=== PATIENT | female | born 1975 | race Caucasian/White ===

== ENCOUNTER 2017-09-10 17:09 | Inpatient (IN) | payer OTHER ==
--- NOTE | 2017-09-10 17:23 | PDOC ---
History of Present Illness - General Chief Complaint: Wound Stated Complaint: FEVER Time Seen by Provider: 09/10/17 17:13 History Source: Patient Exam Limitations: No Limitations - History of Present Illness Initial Comments: 09/10/17 17:23 47-year-old female history of LAP-BAND surgery many years ago was recently seen at [place] for region of her LAP-BAND due to chronic draining abdominal wound. Lap band was removed last week since going patient has a abdominal wound which she has been treating with daily packing wet-to-dry dressings. Today she was seen in follow-up and found to have a fever of [id number] she reports chills for the last 3 days denies any urinary complaints as appropriate postoperative abdominal pain but no nausea no vomiting no change to her stools no recent leg swelling she does feel mildly short of breath no pleuritic chest pain no history of blood clots no rash the abdominal wound has been draining yellowish soupy-like discharge the last day Past History - Past Medical History Allergies/Adverse Reactions: Allergies Allergy/AdvReac Type Severity Reaction Status Date / Time No Known Allergies Allergy Verified 09/10/17 17:12 Home Medications: Ambulatory Orders Bupropion HCl [Wellbutrin Sr] 150 mg PO DAILY 09/02/17 Famotidine [Pepcid] 20 mg PO BID #60 tablet 09/02/17 Oxycodone HCl/Acetaminophen [Percocet 5-325 mg Tablet] 1 tab PO Q6H PRN #20 tablet MDD 4 09/02/17 Sulfamethoxazole/Trimethoprim [Bactrim DS -] 1 tab PO BID 09/02/17 COPD: No DVT: No Psychiatric Problems: Yes (DEPRESSION) - Surgical History Abdominal Surgery: Yes (GASTRIC BAND) - Suicide/Smoking/Psychosocial Hx Smoking History: Never smoked Hx Alcohol Use: No Drug/Substance Use Hx: No Substance Use Type: None Review of Systems - Review of Systems Constitutional: Yes: Chills, Fever HEENTM: No: Eye Pain Respiratory: Yes: Shortness of Breath. No: Cough Cardiac (ROS): No: Chest Pain ABD/GI: No: Diarrhea, Nausea, Vomiting, Abdominal cramping Musculoskeletal: No: Back Pain Integumentary: Yes: Other (abd wound) All Other Systems: Reviewed and Negative *Physical Exam - Vital Signs Last Vital Signs Temp Pulse Resp BP Pulse Ox 102.6 F H 101 H 18 124/69 100 09/10/17 17:11 09/10/17 17:11 09/10/17 17:11 09/10/17 17:11 09/10/17 17:11 - Physical Exam General Appearance: Yes: Appropriately Dressed Neck: positive: Trachea midline Respiratory/Chest: positive: Lungs Clear, Normal Breath Sounds. negative: Respiratory Distress Cardiovascular: positive: Regular Rhythm, Regular Rate, S1, S2, Tachycardia Gastrointestinal/Abdominal: positive: Normal Bowel Sounds, Tender (suprapubic ttp. abd wound right mid abd with clean edges, no surrounding erythema. clean dressing. suprapubic ttp. no rebound no guard. no cva tenderness. ), Flat, Soft Extremity: positive: Normal Capillary Refill, Normal Inspection, Normal Range of Motion. negative: Calf Tenderness, Erythema Integumentary: positive: Normal Color, Dry, Warm, Other (abd wound described above. appropriate post op incision, bruising. ) Neurologic: positive: Fully Oriented, Alert *DC/Admit/Observation/Transfer - Discharge Dispostion Condition at time of disposition: Stable - Referrals - Patient Instructions - Post Discharge Activity
[2017-09-10 17:26] VITALS: BMI 38.5
--- NOTE | 2017-09-10 17:33 | PDOC ---
History of Present Illness <Aysha Joseph - Last Filed: 09/10/17 19:13> - History of Present Illness Initial Comments: 09/10/17 17:32 Ms. Celaya is a 41 yo female w/ pmh of HLD and recent lap band adjustment 2017 and recent band removal 09/02/2017 after resultant draining abscess refractory to both Bactrim and Keflex courses who presents for evaluation of 102 -103 fever noted at home with additional chills and yellow discharge. Patient also reports some body aches and slight shortness of breath as well as a lack of appetite post-op; she describes food as "repulsive;" also says she has had slightly looser stool lately she attributes to the antibiotics. The patient denies chest pain, headache and dizziness. Denies nausea, vomit, diarrhea and constipation. Denies dysuria, frequency, urgency and hematuria. Allergies: NKDA <Piotr Araiza - Last Filed: 09/10/17 19:14> - General Chief Complaint: Wound Stated Complaint: FEVER Time Seen by Provider: 09/10/17 17:13 Past History <Aysha Joseph - Last Filed: 09/10/17 19:13> - Past Medical History COPD: No DVT: No Psychiatric Problems: Yes (DEPRESSION) - Surgical History Abdominal Surgery: Yes (GASTRIC BAND) - Suicide/Smoking/Psychosocial Hx Smoking History: Never smoked Hx Alcohol Use: No Drug/Substance Use Hx: No Substance Use Type: None <Piotr Araiza - Last Filed: 09/10/17 19:14> - Past Medical History Allergies/Adverse Reactions: Allergies Allergy/AdvReac Type Severity Reaction Status Date / Time No Known Allergies Allergy Verified 09/10/17 17:12 Home Medications: Ambulatory Orders Bupropion HCl [Wellbutrin Sr] 150 mg PO DAILY 09/02/17 Famotidine [Pepcid] 20 mg PO BID #60 tablet 09/02/17 Oxycodone HCl/Acetaminophen [Percocet 5-325 mg Tablet] 1 tab PO Q6H PRN #20 tablet MDD 4 09/02/17 Sulfamethoxazole/Trimethoprim [Bactrim DS -] 1 tab PO BID 09/02/17 Review of Systems - Review of Systems Comments:: 09/10/17 17:43 GENERAL/CONSTITUTIONAL: +3 days of fever/chills. No weakness. HEAD, EYES, EARS, NOSE AND THROAT: No change in vision. No ear pain or discharge. No sore throat. CARDIOVASCULAR: +Some slight current shortness of breath. No chest pain RESPIRATORY: No cough, wheezing, or hemoptysis. GASTROINTESTINAL: +Soft stool. Gastric fullness as described. No nausea, vomiting, or constipation. GENITOURINARY: +Increased frequency of urination. No dysuria. MUSCULOSKELETAL: No joint or muscle swelling or pain. No neck or back pain. SKIN: No rash NEUROLOGIC: No headache, vertigo, loss of consciousness, or change in strength/ sensation. ENDOCRINE: No increased thirst. No abnormal weight change HEMATOLOGIC/LYMPHATIC: No anemia, easy bleeding, or history of blood clots. ALLERGIC/IMMUNOLOGIC: No hives or skin allergy. <Piotr Araiza - Last Filed: 09/10/17 19:14> *Physical Exam - Vital Signs Last Vital Signs Temp Pulse Resp BP Pulse Ox 102.6 F H 101 H 18 124/69 100 09/10/17 17:11 09/10/17 17:11 09/10/17 17:11 09/10/17 17:11 09/10/17 17:11 <Aysha Joseph - Last Filed: 09/10/17 19:13> - Vital Signs Last Vital Signs Temp Pulse Resp BP Pulse Ox 102.6 F H 101 H 18 124/69 100 09/10/17 17:11 09/10/17 17:11 09/10/17 17:11 09/10/17 17:11 09/10/17 17:11 - Physical Exam Comments: 09/10/17 17:43 GENERAL: Awake, alert, and fully oriented, in no acute distress HEAD: No signs of trauma, normocephalic, atraumatic EYES: PERRLA, EOMI, sclera anicteric, conjunctiva clear ENT: Auricles normal inspection, hearing grossly normal, nares patent, oropharynx clear without exudates. Moist mucosa NECK: Normal ROM, supple, no lymphadenopathy, JVD, or masses LUNGS: No distress, speaks full sentences, clear to auscultation bilaterally HEART: Regular rate and rhythm, normal S1 and S2, no murmurs, rubs or gallops, peripheral pulses normal and equal bilaterally. ABDOMEN: +Incision site noted with surgical packing - appears well healing. Moderately tender around incision site. Soft, normoactive bowel sounds. No guarding, no rebound. No masses EXTREMITIES: Normal inspection, Normal range of motion, no edema. No clubbing or cyanosis. NEUROLOGICAL: Cranial nerves II through XII grossly intact. Normal speech, normal gait, no focal sensorimotor deficits SKIN: Warm, Dry, normal turgor, no rashes or lesions noted. <Piotr Araiza - Last Filed: 09/10/17 19:14> ED Treatment Course - LABORATORY CBC & Chemistry Diagram: 09/10/17 17:50 09/10/17 17:50 - ADDITIONAL ORDERS Additional order review: Laboratory Results 09/10/17 09/10/17 09/10/17 17:50 17:50 17:50 PT with INR 13.2 H INR 1.18 PTT (Actin FS) 27.9 Sodium 130 L Potassium 3.7 Chloride 101 Carbon Dioxide 26 Anion Gap 3 L BUN 9 Creatinine 0.7 Creat Clearance w eGFR > 60 Random Glucose 95 Calcium 7.8 L Total Bilirubin 0.6 AST 84 H D ALT 97 H D Alkaline Phosphatase 163 H D Total Protein 7.1 Albumin 2.8 L Urine Color Dark yellow Urine Appearance Cloudy Urine pH 5.5 Ur Specific [place] >= 1.030 H Urine Protein 1+ H Urine Glucose (UA) Negative Urine Ketones Trace Urine Blood 3+ H Urine Nitrite Negative Urine Bilirubin 1+ H Urine Urobilinogen 0.2 Ur Leukocyte Esterase Negative Urine RBC >100 Urine WBC 2-5 Ur Epithelial Cells Few Urine Bacteria Many Urine Mucus Few 09/10/17 17:50 RBC 4.57 MCV 82.2 MCHC 33.3 RDW 14.3 MPV 6.9 L Neutrophils % 81.7 Lymphocytes % 8.7 Monocytes % 8.3 Eosinophils % 1.0 Basophils % 0.3 - RADIOLOGY Radiology Studies Ordered: Category Date Time Status ABDOMEN & PELVIS CT WITH CONTR [CT] Stat CT Scan 09/10/17 17:39 Completed CHEST PA & LAT [RAD] Stat Radiology 09/10/17 17:32 Completed - Medications Given in the ED: ED Medications Discontinued Medications Generic Name Dose Route Start Last Admin Trade Name Freq PRN Reason Stop Dose Admin Acetaminophen 1,000 mg 09/10/17 17:40 09/10/17 18:03 Ofirmev Injection - IVPB 09/10/17 17:41 1,000 mg ONCE ONE Administration Sodium Chloride 1,000 ml 09/10/17 17:40 09/10/17 18:03 Normal Saline - IV 09/10/17 17:41 1,000 ml ONCE ONE Administration <Aysha Joseph - Last Filed: 09/10/17 19:13> - LABORATORY CBC & Chemistry Diagram: 09/10/17 17:50 09/10/17 17:50 <Piotr Araiza - Last Filed: 09/10/17 19:14> Medical Decision Making - Medical Decision Making 09/10/17 18:43 Ms. Celaya is a 41 yo female w/ pmh as described who presents for evaluation of fever in a post-op setting. Patient given tylenol for fever. Labs sent for evaluation of presumed infection source as below. Patient urine notable for significant blood as below; patient reports she is currently on day 2 of her menstrual cycle. Patient currently pending CT for further evaluation of possible post-op infection source. 09/10/17 18:49 Patient noted to have small subcutaneous abscess and free fluid in abdomen and pelvis on CT. Labs also significant for AST/ALT elevations. With this in conjunction with CT findings will cover for presumed infection with IV ABX and admit patient for observation. Paging inpatient team. Laboratory Results - last 24 hr 09/10/17 09/10/17 09/10/17 17:50 17:50 17:50 WBC 4.9 RBC 4.57 Hgb 12.5 Hct 37.6 MCV 82.2 MCH 27.4 MCHC 33.3 RDW 14.3 Plt Count 375 MPV 6.9 L Absolute Neuts (auto) 4.1 Neutrophils % 81.7 Lymphocytes % 8.7 Monocytes % 8.3 Eosinophils % 1.0 Basophils % 0.3 PT with INR 13.2 H INR 1.18 PTT (Actin FS) 27.9 Sodium Potassium Chloride Carbon Dioxide Anion Gap BUN Creatinine Creat Clearance w eGFR Random Glucose Calcium Total Bilirubin AST ALT Alkaline Phosphatase Total Protein Albumin Urine Color Dark yellow Urine Appearance Cloudy Urine pH 5.5 Ur Specific [place] >= 1.030 H Urine Protein 1+ H Urine Glucose (UA) Negative Urine Ketones Trace Urine Blood 3+ H Urine Nitrite Negative Urine Bilirubin 1+ H Urine Urobilinogen 0.2 Ur Leukocyte Esterase Negative Urine RBC >100 Urine WBC 2-5 Ur Epithelial Cells Few Urine Bacteria Many Urine Mucus Few 09/10/17 17:50 WBC RBC Hgb Hct MCV MCH MCHC RDW Plt Count MPV Absolute Neuts (auto) Neutrophils % Lymphocytes % Monocytes % Eosinophils % Basophils % PT with INR INR PTT (Actin FS) Sodium 130 L Potassium 3.7 Chloride 101 Carbon Dioxide 26 Anion Gap 3 L BUN 9 Creatinine 0.7 Creat Clearance w eGFR > 60 Random Glucose 95 Calcium 7.8 L Total Bilirubin 0.6 AST 84 H D ALT 97 H D Alkaline Phosphatase 163 H D Total Protein 7.1 Albumin 2.8 L Urine Color Urine Appearance Urine pH Ur Specific [place] Urine Protein Urine Glucose (UA) Urine Ketones Urine Blood Urine Nitrite Urine Bilirubin Urine Urobilinogen Ur Leukocyte Esterase Urine RBC Urine WBC Ur Epithelial Cells Urine Bacteria Urine Mucus 09/10/17 19:09 <Piotr Araiza - Last Filed: 09/10/17 19:14> *DC/Admit/Observation/Transfer <Aysha Joseph - Last Filed: 09/10/17 19:13> - Discharge Dispostion Decision to Admit order: Yes <Piotr Araiza - Last Filed: 09/10/17 19:14> Diagnosis at time of Disposition: Fever Qualifiers: Fever type: unspecified Qualified Code(s): R50.9 - Fever, unspecified Sepsis Qualifiers: Sepsis type: sepsis due to unspecified organism Qualified Code(s): A41.9 - Sepsis, unspecified organism Cellulitis Qualifiers: Site of cellulitis: unspecified site Qualified Code(s): L03.90 - Cellulitis, unspecified Post op infection Qualifiers: Encounter type: initial encounter Qualified Code(s): T81.4XXA - Infection following a procedure, initial encounter - Discharge Dispostion Condition at time of disposition: Stable
--- NOTE | 2017-09-10 17:36 | PDOC ---
Attending Attestation - Resident Resident Name: Piotr Araiza - ED Attending Attestation I have performed the following: I have examined & evaluated the patient, The case was reviewed & discussed with the resident, I agree w/resident's findings & plan, Exceptions are as noted - HPI HPI: 09/10/17 17:34 47-year-old female history of LAP-BAND surgery many years ago was recently seen at [place] for region of her LAP-BAND due to chronic draining abdominal wound. Lap band was removed last week since going patient has a abdominal wound which she has been treating with daily packing wet-to-dry dressings. Today she was seen in follow-up and found to have a fever of 102-0103 she reports chills for the last 3 days denies any urinary complaints as appropriate postoperative abdominal pain but no nausea no vomiting no change to her stools no recent leg swelling she does feel mildly short of breath no pleuritic chest pain no history of blood clots no rash the abdominal wound has been draining yellowish soupy-like discharge the last day - Physicial Exam PE: 09/10/17 17:34 awake alert lungs clear bilaterally. heart reg tachycardia. no mrg. abd soft. right mid abd wound with packing dry inplace. no surrounding erythema. granulation tissue. suprapubic ttp. no rebound no guarding. mild left cva tenderness. ext wwp no edema. skin warm and dry no rash, abd wound described above. post op incisions laprasopic incisions. cdi. no erythema. nuero alert oriented x 3. - Medical Decision Making 09/10/17 17:36 09/10/17 17:37 41 yo F with post op fever, lap band removal and excision infected port tract, differential post op pna, uti, pyelo, intrabdominal abscess. plan cbc lytes lactate. fever control iv hydration. cxr ua cultures. and ct aq/p r/o intrabdominal infection.
[2017-09-10] MEDS ORDERED: ACETAMINOPHEN 1000 MG/100 ML VIAL (NON FORMULARY) IVPB ONE (17:40)
[2017-09-10] MEDS ORDERED: SODIUM CHLORIDE 0.9% 1000 ML INFUS.BAG IV ONE (17:40)
[2017-09-10] MEDS ORDERED: ACETAMINOPHEN INJECTION 100 ML IVPB ONE (17:59)
[2017-09-10 18:02] LABS: PH,URINE 5.5 (4.5-8); URINE APPEARANCE Cloudy; URINE BILIRUBIN 1+ (NEGATIVE); URINE GLUCOSE (UA) Negative (NEGATIVE); URINE KETONE Trace (NEGATIVE); URINE LEUK ESTERASE Negative (NEGATIVE); URINE NITRITE Negative (NEGATIVE); URINE UROBILINOGEN 0.2 (0.2-1.0)
[2017-09-10 18:04] LABS: BASO % 0.3 % (0-2.0); HEMATOCRIT 37.6 % (32.4-45.2); HEMOGLOBIN 12.5 GM/dl (10.7-15.3); LYMPH % 8.7 % (8-40); MCH 27.4 pg (25.7-33.7); MCHC 33.3 g/dl (32.0-36.0); MEAN CELL VOLUME 82.2 fl (80-96); MEAN PLT VOLUME 6.9 fl (7.5-11.1); MONO % 8.3 % (3.8-10.2); NEUT % 81.7 % (42.8-82.8); PLATELET COUNT 375 K/MM3 (134-434); RBC 4.57 M/mm3 (3.60-5.2); RDW 14.3 % (11.6-15.6); WHITE BLOOD COUNT 4.9 K/mm3 (4.0-10.8)
[2017-09-10 18:05] LABS: URINE PROTEIN 1+ (NEGATIVE)
[2017-09-10 18:06] LABS: URINE COLOR DARK YELLOW
[2017-09-10 18:12] LABS: ACTIVATED PTT 27.9 SECONDS (25.2-36.5)
[2017-09-10 18:14] LABS: ALBUMIN 2.8 g/dl (3.5-5.0); ALK PHOS 163 U/L (32-92); ANION GAP 3 (8-16); BILIRUBIN,TOTAL 0.6 mg/dl (0.2-1.0); BLOOD UREA NITROGEN 9 mg/dl (7-18); CALCIUM 7.8 mg/dl (8.4-10.2); CHLORIDE 101 mmol/L (98-107); CO2 26 mmol/L (22-28); CREATININE 0.7 mg/dl (0.6-1.3); GLUCOSE,RANDOM 95 mg/dl (74-106); POTASSIUM 3.7 mmol/L (3.5-5.1); SGOT/AST 84 U/L (10-42); SGPT/ALT 97 U/L (10-40); SODIUM 130 mmol/L (136-145); TOT PROT 7.1 g/dl (6.4-8.3)
[2017-09-10 18:16] LABS: INR 1.18 (0.82-1.09); PROTHROMBIN TIME (PATIENT) 13.2 SEC (10.2-13.0)
[2017-09-10 18:33] LABS: EPI CELLS FEW /HPF; URINE BACTERIA MANY /hpf (NEGATIVE); URINE MUCUS FEW; URINE RBC >100 /hpf (0-3)
[2017-09-10] MEDS ORDERED: VANCOMYCIN 1 GRAM (PRE-DOCKED) 1,000 MG/250 ML BAG IVPB ONE (19:10)
[2017-09-10] MEDS ORDERED: PIPERACILLIN/TAZOB 3.375 GM 3.375 GM in DEXTROSE 5%-WATER - 50 ML IVPB ONE (19:11)
[2017-09-10] MEDS ORDERED: PIPERACILLIN/TAZOBACTAM 3.375 GM VIAL IVPB ONE (19:17)
[2017-09-10] MEDS ORDERED: VANCOMYCIN 1,000 MG VIAL (RESTRICTED TO ID ONLY) ONE (19:28)
--- NOTE | 2017-09-10 20:14 | PDOC ---
*Physical Exam - Vital Signs Last Vital Signs Temp Pulse Resp BP Pulse Ox 102.6 F H 101 H 18 124/69 100 09/10/17 17:11 09/10/17 17:11 09/10/17 17:11 09/10/17 17:11 09/10/17 17:11 ED Treatment Course - LABORATORY CBC & Chemistry Diagram: 09/10/17 17:50 09/10/17 17:50 - ADDITIONAL ORDERS Additional order review: Laboratory Results 09/10/17 09/10/17 09/10/17 17:50 17:50 17:50 PT with INR INR PTT (Actin FS) Sodium 130 L Potassium 3.7 Chloride 101 Carbon Dioxide 26 Anion Gap 3 L BUN 9 Creatinine 0.7 Creat Clearance w eGFR > 60 Random Glucose 95 Lactic Acid 0.7 Calcium 7.8 L Total Bilirubin 0.6 AST 84 H D ALT 97 H D Alkaline Phosphatase 163 H D Total Protein 7.1 Albumin 2.8 L Urine Color Dark yellow Urine Appearance Cloudy Urine pH 5.5 Ur Specific [place] >= 1.030 H Urine Protein 1+ H Urine Glucose (UA) Negative Urine Ketones Trace Urine Blood 3+ H Urine Nitrite Negative Urine Bilirubin 1+ H Urine Urobilinogen 0.2 Ur Leukocyte Esterase Negative Urine RBC >100 Urine WBC 2-5 Ur Epithelial Cells Few Urine Bacteria Many Urine Mucus Few 09/10/17 17:50 PT with INR 13.2 H INR 1.18 PTT (Actin FS) 27.9 Sodium Potassium Chloride Carbon Dioxide Anion Gap BUN Creatinine Creat Clearance w eGFR Random Glucose Lactic Acid Calcium Total Bilirubin AST ALT Alkaline Phosphatase Total Protein Albumin Urine Color Urine Appearance Urine pH Ur Specific [place] Urine Protein Urine Glucose (UA) Urine Ketones Urine Blood Urine Nitrite Urine Bilirubin Urine Urobilinogen Ur Leukocyte Esterase Urine RBC Urine WBC Ur Epithelial Cells Urine Bacteria Urine Mucus 09/10/17 17:50 RBC 4.57 MCV 82.2 MCHC 33.3 RDW 14.3 MPV 6.9 L Neutrophils % 81.7 Lymphocytes % 8.7 Monocytes % 8.3 Eosinophils % 1.0 Basophils % 0.3 - Medications Given in the ED: ED Medications Discontinued Medications Generic Name Dose Route Start Last Admin Trade Name Freq PRN Reason Stop Dose Admin Acetaminophen 1,000 mg 09/10/17 17:40 09/10/17 18:03 Ofirmev Injection - IVPB 09/10/17 17:41 1,000 mg ONCE ONE Administration Piperacillin Sod/Tazobactam 50 mls @ 100 mls/hr 09/10/17 19:11 09/10/17 19:20 Sod 3.375 gm/ Dextrose IVPB 09/10/17 19:40 100 mls/hr ONCE ONE Administration Protocol Sodium Chloride 1,000 ml 09/10/17 17:40 09/10/17 18:03 Normal Saline - IV 09/10/17 17:41 1,000 ml ONCE ONE Administration Vancomycin HCl 1,000 mg 09/10/17 19:10 09/10/17 20:11 Vancomycin (Pre-Docked) IVPB 09/10/17 19:11 1,000 mg ONCE ONE Administration Protocol Medical Decision Making - Medical Decision Making 09/10/17 20:12 Care received at 1900 Case discussed with nurse practitioner Ariane, patient accepted for admission under Dr. Holden Case discussed in detail with admitting physician including history, physical exam and ancillary studies. Admitting physician has assumed care for the patient, will follow all pending diagnostics and will complete the evaluation and treatment. *DC/Admit/Observation/Transfer Diagnosis at time of Disposition: Fever Qualifiers: Fever type: unspecified Qualified Code(s): R50.9 - Fever, unspecified Sepsis Qualifiers: Sepsis type: sepsis due to unspecified organism Qualified Code(s): A41.9 - Sepsis, unspecified organism Cellulitis Qualifiers: Site of cellulitis: unspecified site Qualified Code(s): L03.90 - Cellulitis, unspecified Post op infection Qualifiers: Encounter type: initial encounter Qualified Code(s): T81.4XXA - Infection following a procedure, initial encounter - Discharge Dispostion Condition at time of disposition: Stable - Referrals - Patient Instructions - Post Discharge Activity
[2017-09-10] MEDS ORDERED: DEXTROSE 5%-0.45% SALINE 1,000 ML IV SCH ×2 (20:15→20:17)
[2017-09-10] MEDS: HEPARIN NA (PORCINE) 5,000 UNITS/ML 1ML VIAL SQ SCH (22:00)
[2017-09-11] MEDS ORDERED: ACETAMINOPHEN 325 MG TABLET (FP) PO ONE ×2 (00:39→22:33)
--- NOTE | 2017-09-11 00:47 | HP ---
CHIEF COMPLAINT: Fever, Chills, Abdominal Wound PCP: HISTORY OF PRESENT ILLNESS: This is a 41 y/o young woman with a PMHx of Anxiety, s/p Lap Band (2007), s/p Lap Band Removal (09/02/17). Who presents to the ED with fever, chills. yellow discharge from abdominal wound. Patient reports being treated with packing and dressings. She reports having a follow up at the surgeon's office and was seen by the COMPLAINT INSPECTOR who changed the dressing. Patient reports having slight abdominal pain on movement. Patient denies cough, dizziness, SOB, CP, N/V/D, constipation , dysuria. ER course was notable for: (1) CTAP- small suncutaneous abscess and free fluid in abdomen/pelvis (2) T Max 102.6 (3) LFTs> 2XNL Recent Travel: None PAST MEDICAL HISTORY: HLD Anxiety PAST SURGICAL HISTORY: Abdominalplasty 2017 Lap Band Lap Band Removal x2 Social History: Smoking: Never Alcohol: Social Drugs: None Resides with spouse, employed at [employer] Family History: Father: HTN, HLD Mother: HLD, DM Allergies No Known Allergies Allergy (Verified 09/10/17 20:04) HOME MEDICATIONS: Home Medications Medication Instructions Recorded Bupropion HCl [Wellbutrin Sr] 150 mg PO DAILY 09/02/17 REVIEW OF SYSTEMS CONSTITUTIONAL: fever, chills, loss of appetite Absent: diaphoresis, generalized weakness, malaise, weight change HEENT: Absent: rhinorrhea, nasal congestion, throat pain, throat swelling, difficulty swallowing, mouth swelling, ear pain, eye pain, visual changes CARDIOVASCULAR: Absent: chest pain, syncope, palpitations, irregular heart rate, lightheadedness , peripheral edema RESPIRATORY: Absent: cough, shortness of breath, dyspnea with exertion, orthopnea, wheezing, stridor, hemoptysis GASTROINTESTINAL: Absent: abdominal pain, abdominal distension, nausea, vomiting, diarrhea, constipation, melena, hematochezia GENITOURINARY: Absent: dysuria, frequency, urgency, hesitancy, hematuria, flank pain, genital pain MUSCULOSKELETAL: Absent: myalgia, arthralgia, joint swelling, back pain, neck pain SKIN: Absent: rash, itching, pallor HEMATOLOGIC/IMMUNOLOGIC: Absent: easy bleeding, easy bruising, lymphadenopathy, frequent infections ENDOCRINE: Absent: unexplained weight gain, unexplained weight loss, heat intolerance, cold intolerance NEUROLOGIC: Absent: headache, focal weakness or paresthesias, dizziness, unsteady gait, seizure, mental status changes, bladder or bowel incontinence PSYCHIATRIC: Absent: anxiety, depression, suicidal or homicidal ideation, hallucinations. PHYSICAL EXAMINATION Vital Signs - 24 hr 09/10/17 09/10/17 09/10/17 17:11 20:12 20:23 Temperature 102.6 F H 98.5 F 99.8 F H Pulse Rate 101 H 85 88 Respiratory 18 20 18 Rate Blood Pressure 124/69 106/50 97/53 O2 Sat by Pulse 100 Oximetry (%) 09/10/17 21:00 Temperature Pulse Rate Respiratory 18 Rate Blood Pressure O2 Sat by Pulse Oximetry (%) GENERAL: Awake, alert, and fully oriented, in no acute distress. HEAD: Normal with no signs of trauma. EYES: Pupils equal, round and reactive to light, extraocular movements intact, sclera anicteric, conjunctiva clear. No lid lag. EARS, NOSE, THROAT: Ears normal, nares patent, oropharynx clear without exudates. Moist mucous membranes. NECK: Normal range of motion, supple without lymphadenopathy, JVD, or masses. LUNGS: Breath sounds equal, clear to auscultation bilaterally. No wheezes, and no crackles. No accessory muscle use. HEART: Regular rate and rhythm, normal S1 and S2 without murmur, rub or gallop. ABDOMEN: Soft, nontender, not distended, normoactive bowel sounds, no guarding, no rebound, no masses. No hepatomegaly or splenomegaly. dressing with gauze and packing, slight erythema below right mid quad- umbilical region MUSCULOSKELETAL: Normal range of motion at all joints. No bony deformities or tenderness. No CVA tenderness. UPPER EXTREMITIES: 2+ pulses, warm, well-perfused. No cyanosis. No clubbing. No peripheral edema. LOWER EXTREMITIES: 2+ pulses, warm, well-perfused. No calf tenderness. No peripheral edema. NEUROLOGICAL: Cranial nerves II-XII intact. Normal speech. Gait not observed. PSYCHIATRIC: Cooperative. Good eye contact. Appropriate mood and affect. SKIN: Warm, dry, normal turgor, no rashes or lesions noted, normal capillary refill. Laboratory Results - last 24 hr 09/10/17 09/10/17 09/10/17 17:50 17:50 17:50 WBC 4.9 RBC 4.57 Hgb 12.5 Hct 37.6 MCV 82.2 MCH 27.4 MCHC 33.3 RDW 14.3 Plt Count 375 MPV 6.9 L Absolute Neuts (auto) 4.1 Neutrophils % 81.7 Lymphocytes % 8.7 Monocytes % 8.3 Eosinophils % 1.0 Basophils % 0.3 PT with INR 13.2 H INR 1.18 PTT (Actin FS) 27.9 Sodium Potassium Chloride Carbon Dioxide Anion Gap BUN Creatinine Creat Clearance w eGFR Random Glucose Lactic Acid Calcium Total Bilirubin AST ALT Alkaline Phosphatase Total Protein Albumin Urine Color Dark yellow Urine Appearance Cloudy Urine pH 5.5 Ur Specific [place] >= 1.030 H Urine Protein 1+ H Urine Glucose (UA) Negative Urine Ketones Trace Urine Blood 3+ H Urine Nitrite Negative Urine Bilirubin 1+ H Urine Urobilinogen 0.2 Ur Leukocyte Esterase Negative Urine RBC >100 Urine WBC 2-5 Ur Epithelial Cells Few Urine Bacteria Many Urine Mucus Few 09/10/17 09/10/17 17:50 17:50 WBC RBC Hgb Hct MCV MCH MCHC RDW Plt Count MPV Absolute Neuts (auto) Neutrophils % Lymphocytes % Monocytes % Eosinophils % Basophils % PT with INR INR PTT (Actin FS) Sodium 130 L Potassium 3.7 Chloride 101 Carbon Dioxide 26 Anion Gap 3 L BUN 9 Creatinine 0.7 Creat Clearance w eGFR > 60 Random Glucose 95 Lactic Acid 0.7 Calcium 7.8 L Total Bilirubin 0.6 AST 84 H D ALT 97 H D Alkaline Phosphatase 163 H D Total Protein 7.1 Albumin 2.8 L Urine Color Urine Appearance Urine pH Ur Specific [place] Urine Protein Urine Glucose (UA) Urine Ketones Urine Blood Urine Nitrite Urine Bilirubin Urine Urobilinogen Ur Leukocyte Esterase Urine RBC Urine WBC Ur Epithelial Cells Urine Bacteria Urine Mucus ASSESSMENT/PLAN: 41 y/o woman PMHx of Anxiety, HLD. Admitted for Sepsis secondary to Abdominal Abscess, Failed Outpatient Therapy for further evaluation of their emergent condition. Plan: Sepsis - Likely secondary to abdominal abscess vs Failed Outpatient Therapy - Blood Cultures-pending - Sepsis Criteria Met: Tmax 102.6, BP 97/53 - CTAP- showed small subcutaneous abscess, free fluid abdomen/pelvis - No leukocytosis no lactatic acidosis likely due to recent ABX use - Vancomycin/Zosyn given in ED will continue - Appreciate ID Consult - Appreciate Surgical Consult - Wound Care - Monitor CBC, BMP - Monitor vitals - Continue IVFs Elevated LFTs - Likely due to Sepsis vs Medication - Monitor LFTs - Avoid hepatotoxic drugs Anxiety - Continue Wellbutrin FEN - PO Fluids as tolerated - Replete lytes prn - Regular Diet Ad Kari DVT ppx - OOB - SCDs - Heparin SQ Code Status: Full Code Dispo: Requires Inpatient Care Problem List - Problem (1) Sepsis Code(s): A41.9 - SEPSIS, UNSPECIFIED ORGANISM Qualifiers: Sepsis type: sepsis due to unspecified organism Qualified Code(s): A41.9 - Sepsis, unspecified organism (2) Cellulitis Code(s): L03.90 - CELLULITIS, UNSPECIFIED Qualifiers: Site of cellulitis: unspecified site Qualified Code(s): L03.90 - Cellulitis , unspecified (3) Fever Code(s): R50.9 - FEVER, UNSPECIFIED Qualifiers: Fever type: unspecified Qualified Code(s): R50.9 - Fever, unspecified (4) Anxiety Code(s): F41.9 - ANXIETY DISORDER, UNSPECIFIED Visit type - Emergency Visit Emergency Visit: Yes ED Registration Date: 09/10/17 Care time: The patient presented to the Emergency Department on the above date and was hospitalized for further evaluation of their emergent condition. - New Patient This patient is new to me today: Yes Date on this admission: 09/10/17 - Critical Care Critical Care patient: No Hospitalist Screening - Colonoscopy Questionnaire Colonoscopy Questionnaire: Colonoscopy Questionnaire - Patient: 50 - 75 years old and never had a screening colonoscopy: No History of colon or rectal polyps, or CA: No History of IBD, Crohn's disease or UC: No History of abdominal radiation therapy as a child: No - Relative: 1 with colon or rectal CA, or polyps at age 60 or younger: No Colon or rectal CA diagnosed at age 45 or younger: No Multiple relatives with colon or rectal CA: No - Outcome: Screening Result: Negative Screen
[2017-09-11] MEDS: PIPERACILLIN/TAZOB 3.375 GM 3.375 GM in DEXTROSE 5%-WATER - 50 ML IVPB SCH ×2 (01:14→09:17)
[2017-09-11] MEDS ORDERED: PIPERACILLIN/TAZOB 3.375 GM 3.375 GM in DEXTROSE 5%-WATER - 50 ML IVPB SCH (02:00)
--- NOTE | 2017-09-11 08:10 | PN ---
Physical Exam: SUBJECTIVE: Patient seen and examined, patient is resting comfortably in In bed reports tactile fevers denies any abdominal pain OBJECTIVE: Patient is a 41 y/o young woman with a PMHx of Anxiety, s/p Lap Band (2007), and s/p Lap Band Removal (09/02/17). patient was admitted from the emergency department for emergent condition. Vital Signs Period Temp Pulse Resp BP Sys/Ann Pulse Ox Last 24 Hr 98.5 F-102.6 F 85-101 18-20 97-124/50-69 100 GENERAL: The patient is obese,awake, alert, and fully oriented, in no acute distress. HEAD: Normal with no signs of trauma. EYES: PERRL, extraocular movements intact, sclera anicteric, conjunctiva clear. No ptosis. ENT: Ears normal, nares patent, oropharynx clear without exudates, moist mucous membranes. NECK: Trachea midline, full range of motion, supple. LUNGS: Breath sounds equal, clear to auscultation bilaterally, no wheezes, no crackles, no accessory muscle use. HEART: Regular rate and rhythm, S1, S2 without murmur, rub or gallop. ABDOMEN: Soft, obese, laparoscopic sites was approximated clean and dry, 3 cm horizontal incision noted to right lower abdomen, no erythema noted, packing noted, nontender, nondistended, normoactive bowel sounds, no guarding, no rebound, no hepatosplenomegaly, no masses. EXTREMITIES: 2+ pulses, warm, well-perfused, no edema. NEUROLOGICAL: Cranial nerves II through XII grossly intact. Normal speech, gait not observed. PSYCH: Normal mood, normal affect. SKIN: Warm, dry, normal turgor, no rashes or lesions noted Laboratory Results - last 24 hr 09/10/17 09/10/17 09/10/17 17:50 17:50 17:50 WBC 4.9 RBC 4.57 Hgb 12.5 Hct 37.6 MCV 82.2 MCH 27.4 MCHC 33.3 RDW 14.3 Plt Count 375 MPV 6.9 L Absolute Neuts (auto) 4.1 Neutrophils % 81.7 Lymphocytes % 8.7 Monocytes % 8.3 Eosinophils % 1.0 Basophils % 0.3 PT with INR 13.2 H INR 1.18 PTT (Actin FS) 27.9 Sodium Potassium Chloride Carbon Dioxide Anion Gap BUN Creatinine Creat Clearance w eGFR Random Glucose Lactic Acid Calcium Total Bilirubin AST ALT Alkaline Phosphatase Total Protein Albumin Urine Color Dark yellow Urine Appearance Cloudy Urine pH 5.5 Ur Specific [place] >= 1.030 H Urine Protein 1+ H Urine Glucose (UA) Negative Urine Ketones Trace Urine Blood 3+ H Urine Nitrite Negative Urine Bilirubin 1+ H Urine Urobilinogen 0.2 Ur Leukocyte Esterase Negative Urine RBC >100 Urine WBC 2-5 Ur Epithelial Cells Few Urine Bacteria Many Urine Mucus Few 09/10/17 09/10/17 17:50 17:50 WBC RBC Hgb Hct MCV MCH MCHC RDW Plt Count MPV Absolute Neuts (auto) Neutrophils % Lymphocytes % Monocytes % Eosinophils % Basophils % PT with INR INR PTT (Actin FS) Sodium 130 L Potassium 3.7 Chloride 101 Carbon Dioxide 26 Anion Gap 3 L BUN 9 Creatinine 0.7 Creat Clearance w eGFR > 60 Random Glucose 95 Lactic Acid 0.7 Calcium 7.8 L Total Bilirubin 0.6 AST 84 H D ALT 97 H D Alkaline Phosphatase 163 H D Total Protein 7.1 Albumin 2.8 L Urine Color Urine Appearance Urine pH Ur Specific [place] Urine Protein Urine Glucose (UA) Urine Ketones Urine Blood Urine Nitrite Urine Bilirubin Urine Urobilinogen Ur Leukocyte Esterase Urine RBC Urine WBC Ur Epithelial Cells Urine Bacteria Urine Mucus Active Medications Generic Name Dose Route Start Last Admin Trade Name Omarq PRN Reason Stop Dose Admin Heparin Sodium (Porcine) 5,000 unit 09/10/17 22:00 09/10/17 22:00 Heparin - SQ 5,000 unit BID MAJO Administration Dextrose/Sodium Chloride 1,000 mls @ 100 mls/hr 09/10/17 20:17 09/11/17 00:45 D5-1/2ns - IV 100 mls/hr ASDIR MAJO Administration Piperacillin Sod/Tazobactam 50 mls @ 100 mls/hr 09/11/17 02:00 Sod 3.375 gm/ Dextrose IVPB Q8H-IV MAJO Protocol Vancomycin HCl 1,000 mg/ 250 mls @ 166.667 mls/hr 09/11/17 10:00 Dextrose IVPB Q12H MAJO Protocol Piperacillin Sod/Tazobactam 50 mls @ 100 mls/hr 09/11/17 02:00 09/11/17 01:14 Sod 3.375 gm/ Dextrose IVPB 09/11/17 10:29 100 mls/hr Q8H-IV MAJO Administration Vancomycin HCl 1,000 mg/ 250 mls @ 166.667 mls/hr 09/11/17 10:00 Dextrose IVPB 09/11/17 11:29 ONCE ONE ASSESSMENT/PLAN: 1) Heme/onc Sepsis - secondary to abdominal abscess, patient reports completing a full course of Bactrim prior to admission - Pending blood and urine cultures, continue Zosyn and vancomycin appreciate ID input - No leukocytosis patient afebrile monitor WBC and fever curve. - appreciate ID input - appreciate surgery input, Dr Moctezuma 2) GI transaminitis - benign abdominal exam May be secondary to sepsis, close monitoring 3) psych Anxiety - Continue Wellbutrin FEN - PO Fluids as tolerated - Replete lytes prn - Regular Diet Ad Kari DVT ppx - OOB - SCDs - Heparin SQ Code Status: Full Code Dispo: Requires Inpatient Care 1) Visit type - Emergency Visit Emergency Visit: Yes ED Registration Date: 09/10/17 Care time: The patient presented to the Emergency Department on the above date and was hospitalized for further evaluation of their emergent condition. - New Patient This patient is new to me today: No - Critical Care Critical Care patient: No - Discharge Referral Referred to [facility] Med P.C.: No
[2017-09-11 08:21] LABS: BASO % 0.3 % (0-2.0); HEMATOCRIT 34.5 % (32.4-45.2); HEMOGLOBIN 11.8 GM/dl (10.7-15.3); LYMPH % 5.9 % (8-40); MCH 28.3 pg (25.7-33.7); MCHC 34.2 g/dl (32.0-36.0); MEAN CELL VOLUME 82.6 fl (80-96); MEAN PLT VOLUME 6.7 fl (7.5-11.1); MONO % 9.1 % (3.8-10.2); NEUT % 83.7 % (42.8-82.8); PLATELET COUNT 302 K/MM3 (134-434); RBC 4.18 M/mm3 (3.60-5.2); RDW 14.1 % (11.6-15.6); WHITE BLOOD COUNT 4.7 K/mm3 (4.0-10.8)
[2017-09-11 09:03] LABS: ANION GAP 6 (8-16); BLOOD UREA NITROGEN 6 mg/dl (7-18); CALCIUM 7.8 mg/dl (8.4-10.2); CHLORIDE 101 mmol/L (98-107); CO2 26 mmol/L (22-28); CREATININE 0.6 mg/dl (0.6-1.3); GLUCOSE,RANDOM 99 mg/dl (74-106); POTASSIUM 4.1 mmol/L (3.5-5.1); SODIUM 133 mmol/L (136-145)
[2017-09-11] MEDS: HEPARIN NA (PORCINE) 5,000 UNITS/ML 1ML VIAL SQ SCH ×2 (09:16→21:14)
[2017-09-11] MEDS ORDERED: VANCOMYCIN 1,000 MG in DEXTROSE 5%-WATER - 250 ML IVPB SCH (10:00)
[2017-09-11] MEDS ORDERED: VANCOMYCIN 1,000 MG in DEXTROSE 5%-WATER - 250 ML IVPB ONE (10:00)
--- NOTE | 2017-09-11 10:05 | EKG ---
Test Reason : Blood Pressure : / mmHG Vent. Rate : 100 BPM Atrial Rate : 100 BPM P-R Int : 154 ms QRS Dur : 098 ms QT Int : 340 ms P-R-T Axes : 060 -04 025 degrees QTc Int : 438 ms NORMAL SINUS RHYTHM POSSIBLE LEFT ATRIAL ENLARGEMENT INCOMPLETE RIGHT BUNDLE BRANCH BLOCK CANNOT RULE OUT INFERIOR INFARCT , AGE UNDETERMINED CANNOT RULE OUT ANTERIOR INFARCT , AGE UNDETERMINED ABNORMAL ECG WHEN COMPARED WITH ECG OF 02-SEP-2017 10:11, VENT. RATE HAS INCREASED BY 37 BPM INCOMPLETE RIGHT BUNDLE BRANCH BLOCK IS NOW PRESENT Confirmed by RUPALI GARCÍA, BLAYNE ([id number]) on 09/11/2017 10:05:20 AM Referred By: DR STRATTON Confirmed By:BLAYNE ZAPIEN MD
--- NOTE | 2017-09-11 11:22 | PN ---
Progress Note (short form) - Note Progress Note: ID Consult dictated S/P removal gastric band Subcutaneous fluid collection R/O abscess Fever R/O sepsis secondary to GI source Pending C/S continue empiric zosyn/ vancomycin Surgical follow up
[2017-09-11] MEDS ORDERED: PIPERACILLIN/TAZOB 3.375 GM 3.375 GM/50 ML BAG IVPB SCH (12:00)
--- NOTE | 2017-09-11 12:24 | CONS ---
DATE OF CONSULTATION: DATE OF DICTATION: 09/11/2017 HISTORY OF PRESENT ILLNESS: The patient is a 41-year-old female who is evaluated for sepsis. The patient underwent Lap Band surgery in 2007. She did well until May of this year. She began to develop chronic draining wound at the site of the Lap Band reservoir. She had been treated as an outpatient with Bactrim and Keflex without significant improvement. She underwent removal of the Lap Band on September 02, 2017. She reports that she initially felt well. However, several days later began to develop fever, chills, fever as high as 102-103, associated with generalized body ache, anorexia, loose stool. She was seen in the emergency room on September 10, 2017, at which time she had presented with fever. A CT scan of the abdomen and pelvis was performed, which showed a small subcutaneous fluid collection and free fluid in the abdomen and pelvis. Cultures were obtained and she was empirically treated with vancomycin and Zosyn. At the present time, she is awake and alert. She has no complaints of abdominal pain and no complaints of recurrent fever or chills. She has had no nausea or vomiting. No reported drainage from the surgical incision. PAST MEDICAL HISTORY: Positive for obesity, status post gastric band in 2007, history of hyperlipidemia. PAST SURGICAL HISTORY: Status post Lap Band adjustment in May of 2017, Lap Band removal September 02, 2017. ALLERGIES: No known allergies. MEDICATIONS: Include Wellbutrin, Pepcid, Percocet, Bactrim. 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 She is a nonsmoker/nondrinker. SYSTEMS REVIEW: Neurologic: No loss of consciousness, seizure activity, or focal weakness. Cardiac: Negative for chest pain or palpitations. Respiratory: Negative for cough or sputum production. Gastrointestinal: As per HPI. Genitourinary: Negative for urinary tract infection. LABORATORY DATA: White count 4.7, hematocrit 34.5, platelet count 302. BUN 6, creatinine 0.6, total bilirubin 0.6, alkaline phosphatase 163, AST 84. Urinalysis 2-5 white cells. Blood and urine cultures are pending. CT scan of the abdomen and pelvis with a small amount of free fluid around the liver, inflammatory changes in skin defect noted within the anterior abdominal wall with a 2.3-cm fluid collection suspicious for small subcutaneous abscesses present. PHYSICAL EXAMINATION: General: She is awake and alert. She is not acutely toxic-appearing. Vital signs: Temperature 100.4, T-max 102.6, blood pressure 104/45, pulse 96 and regular, respirations 18 per minute. HEENT: Sclerae anicteric. Heart: Heart sounds S1, S2. Lungs: Clear bilaterally. Abdomen: Soft. No tenderness elicited. No mass, rebound, or rigidity. Surgical wound present. No drainage noted. Extremities: Negative for edema, negative Homans sign. IMPRESSION: 1. Postoperative fever. 2. Status post gastric band removal September 02, 2017. 3. Subcutaneous fluid collection, possible abscess. 4. Fever, rule out sepsis secondary to gastrointestinal source. Await culture results, empiric antibiotic coverage with Zosyn and vancomycin. Surgical followup with Dr. Moctezuma. Will follow. Thank you for the kind referral. STEPHAN PERALTA M.D. [id number]
--- NOTE | 2017-09-11 12:35 | PN ---
Progress Note (short form) - Note Progress Note: Pt with 100.4 temp VSS Pt with no N/V P/E-Abd- RUQ with no cellulitis packing, dressing in place WBC-4.7 H/H-11.8/34.5 LFT- pending (were elevated yesterday) R- PO diet as tolerated Antibiotics as per ID Will follow RUQ wound clinically
[2017-09-11 12:36] LABS: SGOT/AST 66 U/L (10-42); SGPT/ALT 80 U/L (10-40)
[2017-09-11] MEDS: PIPERACILLIN/TAZOB 3.375 GM 3.375 GM/50 ML BAG IVPB SCH (18:05)
[2017-09-11] MEDS: VANCOMYCIN 1 GRAM (PRE-DOCKED) 1,000 MG/250 ML BAG IVPB SCH (20:23)
[2017-09-12] MEDS: PIPERACILLIN/TAZOB 3.375 GM 3.375 GM/50 ML BAG IVPB SCH ×2 (01:21→10:20)
[2017-09-12 08:16] LABS: HEMATOCRIT 34.8 % (32.4-45.2); HEMOGLOBIN 11.8 GM/dl (10.7-15.3); MCHC 33.9 g/dl (32.0-36.0); MEAN CELL VOLUME 82.6 fl (80-96); MEAN PLT VOLUME 6.8 fl (7.5-11.1); PLATELET COUNT 338 K/MM3 (134-434); RBC 4.21 M/mm3 (3.60-5.2); RDW 13.9 % (11.6-15.6); WHITE BLOOD COUNT 6.8 K/mm3 (4.0-10.8)
[2017-09-12 08:27] LABS: ALBUMIN 2.3 g/dl (3.5-5.0); ALK PHOS 135 U/L (32-92); ANION GAP 6 (8-16); BILIRUBIN,TOTAL 0.5 mg/dl (0.2-1.0); BLOOD UREA NITROGEN 4 mg/dl (7-18); CHLORIDE 101 mmol/L (98-107); CO2 26 mmol/L (22-28); CREATININE 0.8 mg/dl (0.6-1.3); GLUCOSE,RANDOM 99 mg/dl (74-106); MAGNESIUM 2.1 mg/dL (1.8-2.4); PHOSPHOROUS 3.2 mg/dl (2.5-4.6); POTASSIUM 3.8 mmol/L (3.5-5.1); SGOT/AST 57 U/L (10-42); SGPT/ALT 74 U/L (10-40); SODIUM 133 mmol/L (136-145); TOT PROT 6.1 g/dl (6.4-8.3)
--- NOTE | 2017-09-12 09:50 | PN ---
Physical Exam: SUBJECTIVE: Patient seen and examined, patient is ambulatory at bedside, reports tactile fevers and chills denies any abdominal pain reports decreased appetite. OBJECTIVE: Patient is a 41 y/o young woman with a PMHx of Anxiety, s/p Lap Band (2007), and s/p Lap Band Removal (09/02/17). patient was admitted from the emergency department for emergent condition. Vital Signs Period Temp Pulse Resp BP Sys/Ann Pulse Ox Last 24 Hr 100.2 F-101.8 F 92-98 -18 122-152/64-93 97-98 GENERAL: The patient is obese,awake, alert, and fully oriented, in no acute distress. HEAD: Normal with no signs of trauma. EYES: PERRL, extraocular movements intact, sclera anicteric, conjunctiva clear. No ptosis. ENT: Ears normal, nares patent, oropharynx clear without exudates, moist mucous membranes. NECK: Trachea midline, full range of motion, supple. LUNGS: Breath sounds equal, clear to auscultation bilaterally, no wheezes, no crackles, no accessory muscle use. HEART: Regular rate and rhythm, S1, S2 without murmur, rub or gallop. ABDOMEN: Soft, obese, laparoscopic sites was approximated clean and dry, 3 cm horizontal incision noted to right lower abdomen, no erythema noted, packing noted, nontender, nondistended, normoactive bowel sounds, no guarding, no rebound, no hepatosplenomegaly, no masses. EXTREMITIES: 2+ pulses, warm, well-perfused, no edema. NEUROLOGICAL: Cranial nerves II through XII grossly intact. Normal speech, gait not observed. PSYCH: Normal mood, normal affect. SKIN: Warm, dry, normal turgor, no rashes or lesions noted Laboratory Results - last 24 hr 09/11/17 09/11/17 09/12/17 07:30 13:45 07:30 WBC 6.8 RBC 4.21 Hgb 11.8 Hct 34.8 MCV 82.6 MCH 28.0 MCHC 33.9 RDW 13.9 Plt Count 338 MPV 6.8 L Absolute Neuts (auto) 5.9 Neutrophils % 87.6 H Lymphocytes % 4.2 L Monocytes % 7.7 Eosinophils % 0.3 Basophils % 0.2 Sodium Potassium Chloride Carbon Dioxide Anion Gap BUN Creatinine Creat Clearance w eGFR Random Glucose Calcium Phosphorus Magnesium Total Bilirubin AST 66 H D ALT 80 H Alkaline Phosphatase Total Protein Albumin Vancomycin Peak 13.0 L* 09/12/17 07:30 WBC RBC Hgb Hct MCV MCH MCHC RDW Plt Count MPV Absolute Neuts (auto) Neutrophils % Lymphocytes % Monocytes % Eosinophils % Basophils % Sodium 133 L Potassium 3.8 Chloride 101 Carbon Dioxide 26 Anion Gap 6 L BUN 4 L Creatinine 0.8 Creat Clearance w eGFR > 60 Random Glucose 99 Calcium 8.0 L Phosphorus 3.2 Magnesium 2.1 Total Bilirubin 0.5 AST 57 H ALT 74 H Alkaline Phosphatase 135 H D Total Protein 6.1 L Albumin 2.3 L Vancomycin Peak Active Medications Generic Name Dose Route Start Last Admin Trade Name Freq PRN Reason Stop Dose Admin Heparin Sodium (Porcine) 5,000 unit 09/10/17 22:00 09/11/17 21:14 Heparin - SQ 5,000 unit BID MAJO Administration Vancomycin HCl 1,000 mg in 250 mls @ 166.667 mls/hr 09/11/17 21:00 09/11/17 20:23 Vancomycin (Pre-Docked) IVPB 166.667 mls/hr Q12H MAJO Administration Protocol Piperacillin Sod/Tazobactam Sod 3.375 gm in 50 mls @ 100 mls/hr 09/11/17 18: 00 09/12/17 01:21 Zosyn 3.375gm Ivpb (Pre-Docked) IVPB 100 mls/hr Q8H-IV MAJO Administration Protocol Microbiology 09/10/17 17:50 Urine - Urine Clean Catch Urine Culture - Preliminary 09/10/17 17:57 Blood - Peripheral Venous Blood Culture - Preliminary NO GROWTH OBTAINED AFTER 24 HOURS, INCUBATION TO CONTINUE FOR 4 DAYS. 09/10/17 17:50 Blood - Peripheral Venous Blood Culture - Preliminary NO GROWTH OBTAINED AFTER 24 HOURS, INCUBATION TO CONTINUE FOR 4 DAYS. ASSESSMENT/PLAN: 1) Heme/onc Sepsis - secondary to abdominal abscess, lab and urine culture negative to date - continue Zosyn and vancomycin (09/11/17 - ) - No leukocytosis, left shift noted, low grade temp noted patient afebrile monitor WBC and fever curve. - appreciate ID input - appreciate surgery input, Dr Moctezuma 2) GI transaminitis - benign abdominal exam, secondary to sepsis, trending downward. close monitoring 3) psych Anxiety - Continue Wellbutrin FEN - PO Fluids as tolerated - Replete lytes prn - Regular Diet Ad Kari DVT ppx - OOB - SCDs - Heparin SQ Code Status: Full Code Dispo: Requires Inpatient Care Visit type - Emergency Visit Emergency Visit: Yes ED Registration Date: 09/10/17 Care time: The patient presented to the Emergency Department on the above date and was hospitalized for further evaluation of their emergent condition. - New Patient This patient is new to me today: No - Critical Care Critical Care patient: No - Discharge Referral Referred to [facility] Med P.C.: No
[2017-09-12] MEDS: VANCOMYCIN 1 GRAM (PRE-DOCKED) 1,000 MG/250 ML BAG IVPB SCH ×2 (10:19→21:30)
[2017-09-12] MEDS: HEPARIN NA (PORCINE) 5,000 UNITS/ML 1ML VIAL SQ SCH ×2 (10:19→21:30)
[2017-09-12] MEDS: LACTOBACILLUS ACIDOPHILUS 1 TABLET PO SCH (13:10)
[2017-09-12 13:54] LABS: BASO % 0.3 % (0-2.0); EOS % 0.3 % (0-4.5); LYMPH % 5.1 % (8-40); MONO % 7.5 % (3.8-10.2); NEUT % 86.8 % (42.8-82.8)
[2017-09-12 14:14] LABS: PLATELET ESTIMATE ADEQUATE
[2017-09-13] MEDS: PIPERACILLIN/TAZOB 3.375 GM 3.375 GM/50 ML BAG IVPB SCH ×3 (02:35→17:44)
[2017-09-13 07:49] LABS: BASO % 0.2 % (0-2.0); EOS % 0.5 % (0-4.5); HEMATOCRIT 35.7 % (32.4-45.2); LYMPH % 3.5 % (8-40); MCH 27.7 pg (25.7-33.7); MCHC 33.6 g/dl (32.0-36.0); MEAN CELL VOLUME 82.4 fl (80-96); MEAN PLT VOLUME 6.8 fl (7.5-11.1); MONO % 7.5 % (3.8-10.2); NEUT % 88.3 % (42.8-82.8); PLATELET COUNT 348 K/MM3 (134-434); RBC 4.33 M/mm3 (3.60-5.2); RDW 14.4 % (11.6-15.6); WHITE BLOOD COUNT 7.4 K/mm3 (4.0-10.8)
[2017-09-13 08:54] LABS: ALBUMIN 2.2 g/dl (3.5-5.0); ALK PHOS 129 U/L (32-92); ANION GAP 6 (8-16); BILIRUBIN,TOTAL 0.5 mg/dl (0.2-1.0); BLOOD UREA NITROGEN 7 mg/dl (7-18); CALCIUM 7.8 mg/dl (8.4-10.2); CHLORIDE 97 mmol/L (98-107); CO2 27 mmol/L (22-28); GLUCOSE,RANDOM 104 mg/dl (74-106); MAGNESIUM 2.1 mg/dL (1.8-2.4); PHOSPHOROUS 3.7 mg/dl (2.5-4.6); POTASSIUM 3.5 mmol/L (3.5-5.1); SGOT/AST 92 U/L (10-42); SGPT/ALT 84 U/L (10-40); SODIUM 130 mmol/L (136-145)
[2017-09-13] MEDS: VANCOMYCIN 1 GRAM (PRE-DOCKED) 1,000 MG/250 ML BAG IVPB SCH ×2 (08:59→20:22)
[2017-09-13] MEDS: HEPARIN NA (PORCINE) 5,000 UNITS/ML 1ML VIAL SQ SCH ×2 (09:44→21:11)
[2017-09-13] MEDS: LACTOBACILLUS ACIDOPHILUS 1 TABLET PO SCH (09:45)
--- NOTE | 2017-09-13 09:49 | PN ---
Physical Exam: SUBJECTIVE: Patient seen and examined, reports feeling bloated with tactile fever, denies any chest pain or shortness of breath. OBJECTIVE: Patient is a 41 y/o young woman with a PMHx of Anxiety, s/p Lap Band (2007), and s/p Lap Band Removal (09/02/17). patient was admitted from the emergency department for emergent condition. Vital Signs Period Temp Pulse Resp BP Sys/Ann Pulse Ox Last 24 Hr 98.9 F-101.1 F 86-100 16-20 112-129/57-66 95-98 GENERAL: The patient is obese,awake, alert, and fully oriented, in no acute distress. HEAD: Normal with no signs of trauma. EYES: PERRL, extraocular movements intact, sclera anicteric, conjunctiva clear. No ptosis. ENT: Ears normal, nares patent, oropharynx clear without exudates, moist mucous membranes. NECK: Trachea midline, full range of motion, supple. LUNGS: Breath sounds equal, clear to auscultation bilaterally, no wheezes, no crackles, no accessory muscle use. HEART: Regular rate and rhythm, S1, S2 without murmur, rub or gallop. ABDOMEN: Soft, obese, laparoscopic sites was approximated clean and dry, 3 cm horizontal incision noted to right lower abdomen, no erythema noted, packing noted, nontender, nondistended, normoactive bowel sounds, no guarding, no rebound, no hepatosplenomegaly, no masses. EXTREMITIES: 2+ pulses, warm, well-perfused, no edema. NEUROLOGICAL: Cranial nerves II through XII grossly intact. Normal speech, gait not observed. PSYCH: Normal mood, normal affect. SKIN: Warm, dry, normal turgor, no rashes or lesions noted Laboratory Results - last 24 hr 09/12/17 09/13/17 09/13/17 07:30 07:15 07:15 WBC 7.4 RBC 4.33 Hgb 12.0 Hct 35.7 MCV 82.4 MCH 27.7 MCHC 33.6 RDW 14.4 Plt Count 348 MPV 6.8 L Absolute Neuts (auto) 6.5 Neutrophils % 86.8 H 88.3 H Neutrophils % (Manual) 89.0 H Lymphocytes % 5.1 L 3.5 L Lymphocytes % (Manual) 5.0 L Monocytes % 7.5 7.5 Monocytes % (Manual) 6 Eosinophils % 0.3 0.5 Basophils % 0.3 0.2 Platelet Estimate Adequate Sodium 130 L Potassium 3.5 Chloride 97 L Carbon Dioxide 27 Anion Gap 6 L BUN 7 Creatinine 1.0 Creat Clearance w eGFR > 60 Random Glucose 104 Calcium 7.8 L Phosphorus 3.7 Magnesium 2.1 Total Bilirubin 0.5 AST 92 H D ALT 84 H Alkaline Phosphatase 129 H Total Protein 6.0 L Albumin 2.2 L Active Medications Generic Name Dose Route Start Last Admin Trade Name Freq PRN Reason Stop Dose Admin Famotidine 20 mg 09/13/17 10:00 09/13/17 10:20 Pepcid - PO 20 mg BID MAJO Administration Heparin Sodium (Porcine) 5,000 unit 09/10/17 22:00 09/13/17 09:44 Heparin - SQ 5,000 unit BID MAJO Administration Vancomycin HCl 1,000 mg in 250 mls @ 166.667 mls/hr 09/11/17 21:00 09/13/17 08:59 Vancomycin (Pre-Docked) IVPB 166.667 mls/hr Q12H MAJO Administration Protocol Piperacillin Sod/Tazobactam Sod 3.375 gm in 50 mls @ 100 mls/hr 09/11/17 18: 00 09/13/17 09:45 Zosyn 3.375gm Ivpb (Pre-Docked) IVPB 100 mls/hr Q8H-IV MAJO Administration Protocol Lactobacillus Acidophilus 1 tab 09/12/17 12:45 09/13/17 09:45 Bacid - PO 1 tab DAILY MAJO Administration Simethicone 80 mg 09/13/17 09:50 09/13/17 10:20 Mylicon - PO 80 mg Q4H PRN Administration GAS Microbiology 09/10/17 17:57 Blood - Peripheral Venous Blood Culture - Preliminary NO GROWTH OBTAINED AFTER 48 HOURS, INCUBATION TO CONTINUE FOR 3 DAYS. 09/10/17 17:50 Blood - Peripheral Venous Blood Culture - Preliminary NO GROWTH OBTAINED AFTER 48 HOURS, INCUBATION TO CONTINUE FOR 3 DAYS. 09/10/17 17:50 Urine - Urine Clean Catch Urine Culture - Preliminary ASSESSMENT/PLAN: 1) Heme/onc Sepsis - secondary to abdominal abscess, lab and urine culture negative to date, MAXIMUM TEMPERATURE 101.5, blood cultures repeated, no leukocytosis. trend WBC of fever curve - continue Zosyn and vancomycin (7/25/18 - ) - ID consulted and following - Dr Moctezuma, surgery, consulted and following 2) GI transaminitis - benign abdominal exam, secondary to sepsis, close monitoring 3) psych Anxiety - Continue Wellbutrin FEN - PO Fluids as tolerated - Replete lytes prn - Regular Diet Ad Kari DVT ppx - OOB - SCDs - Heparin SQ Code Status: Full Code Dispo: Requires Inpatient Care Visit type - Emergency Visit Emergency Visit: Yes ED Registration Date: 09/10/17 Care time: The patient presented to the Emergency Department on the above date and was hospitalized for further evaluation of their emergent condition. - New Patient This patient is new to me today: No - Critical Care Critical Care patient: No - Discharge Referral Referred to [facility] Med [facility].: No
[2017-09-13] MEDS ORDERED: SIMETHICONE 80 MG TAB.CHEW (FP) PO PRN (09:50)
--- NOTE | 2017-09-13 10:13 | PN ---
Progress Note, Physician History of Present Illness: Remains febrile 101.1 overnight No focal complaint Denies abdominal pain No N/V/D No dysuria/ hematuria Denies chest pain/ dyspnea/ cough No calf tenderness WBC WNL Cultures negative - Current Medication List Current Medications: Active Medications Famotidine (Pepcid -) 20 mg PO BID MAJO Heparin Sodium (Porcine) (Heparin -) 5,000 unit SQ BID MAJO Last Admin: 09/13/17 09:44 Dose: 5,000 unit Vancomycin HCl (Vancomycin (Pre-Docked)) 1,000 mg in 250 mls @ 166.667 mls/hr IVPB Q12H MAJO; Protocol Last Admin: 09/13/17 08:59 Dose: 166.667 mls/hr Piperacillin Sod/Tazobactam Sod (Zosyn 3.375gm Ivpb (Pre-Docked)) 3.375 gm in 50 mls @ 100 mls/hr IVPB Q8H-IV MAJO; Protocol Last Admin: 09/13/17 09:45 Dose: 100 mls/hr Lactobacillus Acidophilus (Bacid -) 1 tab PO DAILY MAJO Last Admin: 09/13/17 09:45 Dose: 1 tab Simethicone (Mylicon -) 80 mg PO Q4H PRN PRN Reason: GAS - Objective Vital Signs: Vital Signs Temperature 98.9 F 09/13/17 06:00 Pulse Rate 90 09/13/17 06:00 Respiratory Rate 16 09/13/17 08:21 Blood Pressure 115/66 09/13/17 06:00 O2 Sat by Pulse Oximetry (%) 98 09/13/17 08:21 Constitutional: Yes: No Distress Eyes: Yes: Conjunctiva Clear Cardiovascular: Yes: Regular Rate and Rhythm, S1, S2 Respiratory: Yes: CTA Bilaterally Gastrointestinal: Yes: Normal Bowel Sounds, Soft, Abdomen, Obese, Other (wound with packing in place No drainage). No: Tenderness Labs: CBC, BMP 09/13/17 07:15 09/13/17 07:15 INR, PTT INR 1.18 (0.82-1.09) 09/10/17 17:50 Assessment/Plan S/P removal , infected lap band R/O sepsis Repeat BC Continue vancomycin/ zosyn CT scan reviewed with radiologist No drainable subcutaneous collection ? Early peritonitis Continue empiric vancomycin/ zosyn If continued fever reimage Saturday
[2017-09-13] MEDS: FAMOTIDINE 20 MG TABLET PO SCH ×2 (10:20→21:11)
[2017-09-13] MEDS ORDERED: POTASSIUM CHLORIDE TABS 20 MEQ TABLET.ER (FP) PO ONE (12:02)
[2017-09-13] MEDS ORDERED: ACETAMINOPHEN 1000 MG/100 ML VIAL (NON FORMULARY) IVPB ONE (14:00)
[2017-09-13] MEDS ORDERED: ZOLPIDEM TARTRATE 5 MG TABLET PO PRN (14:01)
--- NOTE | 2017-09-13 15:13 | PN ---
Progress Note (short form) - Note Progress Note: Pt with continued temp-102.8 VSS ID note appreciated Pt feels well PO intake - fair P/E- Dressing, packing changed wound clean, minimal drainage noted wound edges pink, no necrosis WBC-7.4 P- Cont antibiotics as per ID Cont supportive care
[2017-09-13] MEDS: ACETAMINOPHEN 325 MG TABLET (FP) PO PRN (22:05)
[2017-09-14] MEDS: PIPERACILLIN/TAZOB 3.375 GM 3.375 GM/50 ML BAG IVPB SCH ×2 (01:35→11:44)
[2017-09-14] MEDS: ACETAMINOPHEN 325 MG TABLET (FP) PO PRN ×2 (07:00→13:30)
[2017-09-14] MEDS: VANCOMYCIN 1 GRAM (PRE-DOCKED) 1,000 MG/250 ML BAG IVPB SCH (09:47)
[2017-09-14] MEDS: FAMOTIDINE 20 MG TABLET PO SCH (09:47)
[2017-09-14] MEDS: HEPARIN NA (PORCINE) 5,000 UNITS/ML 1ML VIAL SQ SCH (09:47)
[2017-09-14] MEDS: LACTOBACILLUS ACIDOPHILUS 1 TABLET PO SCH (09:47)
--- NOTE | 2017-09-14 10:49 | PN ---
Physical Exam: SUBJECTIVE: Patient seen and examined. Pt states feeling better,denies abdominal pain,N/V,chills,no urinary symptoms, reports diarrhea x1 today, no hematochezia. OBJECTIVE: Vital Signs Period Temp Pulse Resp BP Sys/Ann Pulse Ox Last 24 Hr 100 F-102.8 F 88-98 16-19 106-114/60-72 95-96 GENERAL: The patient is awake, alert, and fully oriented, in no acute distress. HEAD: Normal with no signs of trauma. EYES: PERRL, extraocular movements intact, sclera anicteric, conjunctiva clear. No ptosis. ENT: Ears normal, nares patent, oropharynx clear without exudates, moist mucous membranes. NECK: Trachea midline, full range of motion, supple. LUNGS: Breath sounds equal, clear to auscultation bilaterally, no wheezes, no crackles, no accessory muscle use. HEART: Regular rate and rhythm, S1, S2 without murmur, rub or gallop. ABDOMEN: Soft, nontender, nondistended, normoactive bowel sounds, no guarding, no rebound, no hepatosplenomegaly, no masses,abdominal dsg D&I EXTREMITIES: 2+ pulses, warm, well-perfused, no edema. NEUROLOGICAL: Cranial nerves II through XII grossly intact. Normal speech, gait not observed. PSYCH: Normal mood, normal affect. SKIN: Warm, dry, normal turgor, no rashes or lesions noted Active Medications Generic Name Dose Route Start Last Admin Trade Name Freq PRN Reason Stop Dose Admin Acetaminophen 650 mg 09/13/17 14:01 09/14/17 07:00 Tylenol - PO 650 mg Q4H PRN Administration FEVER Famotidine 20 mg 09/13/17 10:00 09/14/17 09:47 Pepcid - PO 20 mg BID MAJO Administration Heparin Sodium (Porcine) 5,000 unit 09/10/17 22:00 09/14/17 09:47 Heparin - SQ 5,000 unit BID MAJO Administration Vancomycin HCl 1,000 mg in 250 mls @ 166.667 mls/hr 09/11/17 21:00 09/14/17 09:47 Vancomycin (Pre-Docked) IVPB 166.667 mls/hr Q12H MAJO Administration Protocol Piperacillin Sod/Tazobactam Sod 3.375 gm in 50 mls @ 100 mls/hr 09/11/17 18: 00 09/14/17 01:35 Zosyn 3.375gm Ivpb (Pre-Docked) IVPB 100 mls/hr Q8H-IV MAJO Administration Protocol Lactobacillus Acidophilus 1 tab 09/12/17 12:45 09/14/17 09:47 Bacid - PO 1 tab DAILY MAJO Administration Simethicone 80 mg 09/13/17 09:50 09/13/17 10:20 Mylicon - PO 80 mg Q4H PRN Administration GAS Zolpidem Tartrate 5 mg 09/13/17 14:01 Ambien - PO HS PRN INSOMNIA Microbiology 09/10/17 17:57 Blood - Peripheral Venous Blood Culture - Preliminary NO GROWTH OBTAINED AFTER 48 HOURS, INCUBATION TO CONTINUE FOR 3 DAYS. 09/10/17 17:50 Blood - Peripheral Venous Blood Culture - Preliminary NO GROWTH OBTAINED AFTER 48 HOURS, INCUBATION TO CONTINUE FOR 3 DAYS. 09/10/17 17:50 Urine - Urine Clean Catch Urine Culture - Preliminary, <10, 000 CTAP- small subcutaneous abscess and free fluid in abdomen/pelvis ASSESSMENT/PLAN: This is a 41 y/o young woman with a PMHx of Anxiety, s/p Lap Band (2007), s/p Lap Band Removal (09/02/17),who presents to the ED with fever, chills. yellow discharge from abdominal wound. *Sepsis- secondary to abdominal abscess,s/p Lap Band Removal (09/02/17) -no lactic acidosis -still febrile T102,no leukocytosis - initial BC showed no growth - Repeat BC pending - CT abdomen: Small subcutaneous abscess and free fluid in abdomen/pelvis-No drainable subcutaneous collection as per radiology - ID following, if fever persist, rec to re-image on Saturday - will continue Zosyn and vancomycin (09/11/17) -surgery Dr Moctezuma consulted and following - wound care -on probiotics - will check stool for C- diff *Transaminitis - benign abdominal exam, likely secondary to sepsis, close monitoring - LFT's trending up abdominal US: No evidence of acute cholecystitis, no biliary tract dilatation - will hold off Tylenol -will f/u on LFT's - will check Hep profile * Hyponatremia - Na level trending down 134>130 - will start on IVF - will f/u on [employer]p [employer] *Anxiety - Continue Wellbutrin FEN - PO Fluids as tolerated - Replete lytes prn - Regular Diet Ad Kari *DVT ppx - OOB - SCDs - Heparin SQ Code Status: Full Code Dispo: Requires Inpatient Care 2:30PM :Addendum: Pt requesting to leave AMA,informed medical risks,pt wants to go to other facility for further treatment. Left message for surgeon.
[2017-09-14 11:13] LABS: BASO % 0.6 % (0-2.0); EOS % 0.6 % (0-4.5); HEMATOCRIT 33.1 % (32.4-45.2); HEMOGLOBIN 11.5 GM/dl (10.7-15.3); LYMPH % 4.3 % (8-40); MCH 28.2 pg (25.7-33.7); MCHC 34.6 g/dl (32.0-36.0); MEAN CELL VOLUME 81.4 fl (80-96); MEAN PLT VOLUME 6.3 fl (7.5-11.1); MONO % 9.2 % (3.8-10.2); NEUT % 85.3 % (42.8-82.8); PLATELET COUNT 349 K/MM3 (134-434); RBC 4.07 M/mm3 (3.60-5.2)
[2017-09-14] MEDS ORDERED: SODIUM CHLORIDE 1,000 ML IV SCH (11:15)
[2017-09-14 11:34] LABS: ALBUMIN 2.1 g/dl (3.5-5.0); ALK PHOS 140 U/L (32-92); ANION GAP 6 (8-16); BILIRUBIN,TOTAL 0.8 mg/dl (0.2-1.0); BLOOD UREA NITROGEN 9 mg/dl (7-18); CALCIUM 7.8 mg/dl (8.4-10.2); CHLORIDE 99 mmol/L (98-107); CO2 28 mmol/L (22-28); CREATININE 1.2 mg/dl (0.6-1.3); GLUCOSE,RANDOM 98 mg/dl (74-106); POTASSIUM 3.6 mmol/L (3.5-5.1); SGOT/AST 150 U/L (10-42); SGPT/ALT 123 U/L (10-40); SODIUM 133 mmol/L (136-145)
[2017-09-14 14:49] VITALS: BP 137/85; PULSE 93; TEMP 101.5
[2017-09-16 14:12] LABS: HEP.C VIRUS AB 0.1 s/co ratio (0.0-0.9)
== END 2017-09-14 15:10 | disposition left against medical advice (07) | DRG 862 ==
LOC: FER 17:09 → FM/S 19:14 → UNDOADMIN 20:19 → FM/S 20:19
PROVIDERS: ADMIT Internal Medicine; ATTEND Nurse Practitioner Family
DX: T81.4XXA Infection following a procedure, initial encounter (principal); A41.89 Other specified sepsis; K65.1 Peritoneal abscess; L03.90 Cellulitis, unspecified; Y83.8 Other surgical procedures as the cause of abnormal reaction of the patient, or of later complication, without mention of misadventure at the time of the procedure; E78.5 Hyperlipidemia, unspecified; F41.9 Anxiety disorder, unspecified; R79.89 Other specified abnormal findings of blood chemistry; E66.8 Other obesity; Z68.38 Body mass index [BMI] 38.0-38.9, adult; Z98.84 Bariatric surgery status
CPT/HCPCS: 36415; 71046-TC-FY; 74177-TC; 76705-TC; 80048; 80053; 80074; 81003; 81015; 82247; 83605; 83735; 84100; 84450; 84460; 85025; 85610; 85730; 87040; 87086; 93005; 93970-TC; 99284-25; G0480; J0131; J1644; J7030